=== PATIENT | female | born 1985 | race Caucasian/White ===

== ENCOUNTER 2020-02-13 20:49 | Observation (INO) | payer BC ==
[~2020-02-13] VITALS: Ht 160 cm; Wt 144.7 kg
[2020-02-13 22:01] VITALS: BP 135/75
[2020-02-13] MEDS ORDERED: CETI1TAB5 PO (22:07)
[2020-02-13] MEDS ORDERED: MESA500C PO (22:07)
[2020-02-13] MEDS ORDERED: [UNRECOGNIZED DRUG - CODE] IV (22:07)
[2020-02-13] MEDS ORDERED: FERR-252 PO (22:07)
[2020-02-13] MEDS ORDERED: SERT50TA PO (22:07)
[2020-02-13] MEDS ORDERED: PREN-380 PO (22:07)
[2020-02-13 23:10] VITALS: BP 135/74
== END 2020-02-13 23:20 | disposition home or self-care (01) ==
LOC: MLD 20:49 → UNDOADMIN 20:49 → MLD 20:49
PROVIDERS: ADMIT Obstetrics & Gynecology; ATTEND Obstetrics & Gynecology
DX: O36.8130 Decreased fetal movements, third trimester, not applicable or unspecified (principal); O21.2 Late vomiting of pregnancy; Z3A.26 26 weeks gestation of pregnancy
CPT/HCPCS: 76819; G0378; Q0092; 59025

== ENCOUNTER 2020-03-29 14:22 | Observation (INO) | payer BC ==
[~2020-03-29] VITALS: Ht 165.1 cm; Wt 146.1 kg
[~2020-03-29 14:22] MED LIST: CETI1TAB5 PO; FERR-252 PO; MESA500C PO; PREN-380 PO; SERT50TA PO; [UNRECOGNIZED DRUG - CODE] IV
[2020-03-29] MEDS ORDERED: TRA200 PO (14:38)
[2020-03-29] MEDS ORDERED: PRED20TA5 PO (14:39)
[2020-03-29] MEDS ORDERED: BETAMETH ACET/BETAMETH NA PH 30 MG/5 ML VIAL IM SCH (14:40)
[2020-03-29 15:17] LABS: BASOPHILS % (AUTO) 0.2 % (0.0-2.0); EOSINOPHILS % (AUTO) 0.3 % (0.0-4.0); HEMATOCRIT 32.3 % (36-48); HEMOGLOBIN 10.3 g/dL (12.0-16.0); LYMPHOCYTES # (AUTO) 1.6 K/uL (2.5-16.5); LYMPHOCYTES % (AUTO) 10.2 % (20.5-51.1); MEAN CORPUSCULAR HEMOGLOBIN 25 pg (27-31); MEAN CORPUSCULAR HGB CONC 32 g/dL (33-37); MONOCYTES # (AUTO) 0.7 K/uL (0.8-1.0); MONOCYTES % (AUTO) 4.5 % (1.7-9.3); NEUTROPHILS # (AUTO) 13.7 K/uL (1.8-7.7); NEUTROPHILS % (AUTO) 84.8 % (42.2-75.2); PLATELET COUNT (AUTO) 465 K/uL (140-450); RED BLOOD CELL COUNT(AUTO) 4.09 MIL/uL (4.20-5.40); RED CELL DISTRIBUTION WIDTH 15.9 % (11.6-13.7); WHITE BLOOD COUNT (AUTO) 16.1 K/uL (4.8-10.8)
[2020-03-29 15:20] LABS: APPEARANCE,URINE CLEAR (CLEAR); BILIRUBIN,URINE NEGATIVE (NEGATIVE); BLOOD, URINE NEGATIVE (NEGATIVE); COLOR,URINE YELLOW (YELLOW); LEUKOCYTE ESTERASE ,URINE TRACE (NEGATIVE); NITRITE, URINE NEGATIVE (NEGATIVE); PH,URINE 6.5 (5.0-9.0); UGLUCOSE NEGATIVE (NEGATIVE)
[2020-03-29 15:32] LABS: ALBUMIN 2.5 g/dL (3.4-5.0); ANION GAP 14.6 (8-16); CARBON DIOXIDE 25.3 mmol/L (21-32); CREATININE 0.7 mg/dL (0.6-1.3); POTASSIUM 3.9 mmol/L (3.5-5.1); TOTAL BILIRUBIN 0.2 mg/dL (0.0-1.0); URIC ACID 4.6 mg/dL (2.6-7.2)
[2020-03-29 15:34] LABS: URINE TOTAL PROTEIN 13.2 mg/dL (0-12)
[2020-03-29 15:55] LABS: PROTHROMBIN TIME 9.2 secs (10.8-13.4)
== END 2020-03-29 19:45 | disposition home or self-care (01) ==
LOC: MFCC 14:22
PROVIDERS: ADMIT Obstetrics & Gynecology; ATTEND Obstetrics & Gynecology
DX: O26.893 Other specified pregnancy related conditions, third trimester (principal); R10.11 Right upper quadrant pain; O10.913 Unspecified pre-existing hypertension complicating pregnancy, third trimester; Z3A.32 32 weeks gestation of pregnancy
CPT/HCPCS: 36415; 76705; 76819; 80053; 81003; 82150; 82570; 83690; 84550; 85025; 85384; 85610; 85730; 96372; G0378; J0702; Q0092

== ENCOUNTER 2020-03-30 14:55 | Observation (INO) | payer BC ==
[~2020-03-30] VITALS: Ht 167.6 cm; Wt 146.1 kg
[~2020-03-30 14:55] MED LIST changes: +PRED20TA5 PO; +TRA200 PO
[2020-03-30] MEDS ORDERED: BETAMETH ACET/BETAMETH NA PH 30 MG/5 ML VIAL IM SCH (15:30)
== END 2020-03-30 16:05 | disposition home or self-care (01) ==
LOC: MLD 14:55
PROVIDERS: ADMIT Obstetrics & Gynecology; ATTEND Obstetrics & Gynecology
DX: O26.893 Other specified pregnancy related conditions, third trimester (principal); R10.9 Unspecified abdominal pain; Z3A.31 31 weeks gestation of pregnancy
CPT/HCPCS: 96372; G0378; J0702

== ENCOUNTER 2020-04-19 10:29 | Observation (INO) | payer BC ==
[~2020-04-19] VITALS: Ht 162.6 cm; Wt 147.9 kg
[~2020-04-19 10:29] MED LIST changes: -CETI1TAB5 PO; -MESA500C PO; -[UNRECOGNIZED DRUG - CODE] IV
[2020-04-19] MEDS ORDERED: ACET-2619 PO (11:05)
[2020-04-19] MEDS ORDERED: PRED10TA5 PO (11:05)
[2020-04-19] MEDS ORDERED: LABETALOL 100 MG/20 ML VIAL IV SCH (11:05)
[2020-04-19] MEDS ORDERED: [UNRECOGNIZED DRUG - CODE] PO (11:05)
[2020-04-19 11:39] VITALS: BP 136/69
[2020-04-19] MEDS: APAP/BUTAL/CAFF 325/50/40 MG 1 TAB PO PRN ×2 (11:59→17:33)
[2020-04-19 12:39] LABS: BASOPHILS # (AUTO) 0.1 K/uL (0.00-0.22); BASOPHILS % (AUTO) 0.6 % (0.0-2.0); EOSINOPHILS # (AUTO) 0.1 K/uL (0-0.4); EOSINOPHILS % (AUTO) 0.3 % (0.0-4.0); HEMATOCRIT 36.5 % (36-48); HEMOGLOBIN 11.4 g/dL (12.0-16.0); LYMPHOCYTES # (AUTO) 3.2 K/uL (2.5-16.5); LYMPHOCYTES % (AUTO) 20.3 % (20.5-51.1); MEAN CORPUSCULAR HEMOGLOBIN 25 pg (27-31); MEAN CORPUSCULAR HGB CONC 31 g/dL (33-37); MEAN CORPUSCULAR VOLUME 78.1 fL (80-94); MONOCYTES % (AUTO) 6.3 % (1.7-9.3); NEUTROPHILS # (AUTO) 11.5 K/uL (1.8-7.7); NEUTROPHILS % (AUTO) 72.5 % (42.2-75.2); PLATELET COUNT (AUTO) 508 K/uL (140-450); RED BLOOD CELL COUNT(AUTO) 4.67 MIL/uL (4.20-5.40); RED CELL DISTRIBUTION WIDTH 16.7 % (11.6-13.7); WHITE BLOOD COUNT (AUTO) 15.8 K/uL (4.8-10.8)
[2020-04-19 13:19] LABS: ALBUMIN 2.7 g/dL (3.4-5.0); ANION GAP 20.1 (8-16); CARBON DIOXIDE 21.8 mmol/L (21-32); CREATININE 0.7 mg/dL (0.6-1.3); POTASSIUM 3.9 mmol/L (3.5-5.1); TOTAL BILIRUBIN 0.2 mg/dL (0.0-1.0); URIC ACID 5.2 mg/dL (2.6-7.2)
[2020-04-19 14:42] LABS: BILIRUBIN,URINE NEGATIVE (NEGATIVE); BLOOD, URINE NEGATIVE (NEGATIVE); COLOR,URINE YELLOW (YELLOW); LEUKOCYTE ESTERASE ,URINE 1+ (NEGATIVE); NITRITE, URINE NEGATIVE (NEGATIVE); UGLUCOSE NEGATIVE (NEGATIVE)
[2020-04-19 14:52] LABS: APPEARANCE,URINE HAZY (CLEAR)
[2020-04-19 15:25] LABS: RBC,URINE NONE SEEN /HPF (0-5); WBC,URINE 0-5 /HPF (0-5)
[2020-04-19 16:20] LABS: URINE TOTAL PROTEIN 9.6 mg/dL (0-12)
== END 2020-04-19 17:45 | disposition home or self-care (01) ==
LOC: MLD 10:29
PROVIDERS: ADMIT Obstetrics & Gynecology; ATTEND Obstetrics & Gynecology
DX: O26.893 Other specified pregnancy related conditions, third trimester (principal); R03.0 Elevated blood-pressure reading, without diagnosis of hypertension; R51 Headache; O21.2 Late vomiting of pregnancy; O14.93 Unspecified pre-eclampsia, third trimester; Z88.2 Allergy status to sulfonamides; Z91.010 Allergy to peanuts; Z91.018 Allergy to other foods; Z3A.35 35 weeks gestation of pregnancy
CPT/HCPCS: 36415; 76819; 80053; 81001; 82570; 84550; 85025; 85384; 85610; 85730; 86886; 86900; 86901; 87086; G0378; Q0092; 59025